=== PATIENT | female | born 1980 | race Caucasian/White ===

== ENCOUNTER 2020-07-29 07:41 | Emergency (ER) | payer BC ==
[2020-07-29 08:50] LABS: Basophils % 0.4 % (0-1.3); Hematocrit 41.5 % (36.0-45.0); MPV 7.4 fL (7.6-11.3)
--- NOTE | 2020-07-29 08:57 | RAD REPORT ---
EXAM DESCRIPTION: RAD - Chest Single View - 07/29/2020 8:52 am CLINICAL HISTORY: ABDOMINAL DISTENTION Chest pain. COMPARISON: No comparisons FINDINGS: Portable technique limits examination quality. The lungs are grossly clear. The heart is normal in size. No displaced fractures. IMPRESSION: No acute intrathoracic process suspected.
[2020-07-29] MEDS ORDERED: NA CHLORIDE 0.9% 1,000 ML ONE (09:09)
[2020-07-29 09:13] LABS: Urine Blood NEGATIVE (NEG); Urine Glucose NEGATIVE (NEG); Urine Protein NEGATIVE (NEG); Urine pH 6.5 (5.0-7.0)
[2020-07-29 09:20] LABS: ALT/SGPT 30 U/L (12-78); AST/SGOT 19 U/L (15-37); Albumin 4.1 g/dL (3.4-5.0); Alkaline Phosphatase 67 U/L (45-117); BUN Blood Urea Nitrogen 10 mg/dL (7-18); Bicarbonate 27 mmol/L (21-32); Bilirubin Direct < 0.1 mg/dL (0-0.2); Bilirubin Total 0.5 mg/dL (0.2-1.0); Glucose Level 107 mg/dL (74-106); Lipase 86 U/L (73-393); Magnesium 2.1 mg/dL (1.8-2.4); NT PRO-BNP 22 pg/mL (<125); Protein, Total 7.9 g/dL (6.4-8.2); Sodium Level 135 mmol/L (136-145); Thyroid Stimulating Hormone 0.193 uIU/mL (0.360-3.740); Troponin (Emerg Dept Use Only) < 0.02 ng/mL (0.0-0.045)
--- NOTE | 2020-07-29 09:32 | RAD REPORT ---
EXAM DESCRIPTION: CTAbdomen Pelvis W Contrast - 07/29/2020 9:03 am CLINICAL HISTORY: Abdominal pain. Abd pain;Flank pain COMPARISON: No comparisons TECHNIQUE: Biphasic CT imaging of the abdomen and pelvis was performed with 100 ml non-ionic IV cont rast. All CT scans are performed using dose optimization technique as appropriate and may include automated exposure control or mA/KV adjustment according to patient size. FINDINGS: The lung bases are clear. The liver, spleen, pancreas, right adrenal gland and kidneys are within normal limits. 2 cm left adre nal mass is present, nonspecific but most likely an adenoma. No bowel obstruction, free air, free fluid or abscess. Sigmoid diverticulosis coli is present without diverticulitis. The appendix is normal. No evidence of significant lymphadenopathy. No suspicious bony findings. IMPRESSION: No acute intra-abdominal or pelvic finding. 2 cm left adrenal mass is present. This is most likely an adenoma. Nonemergent MRI adrenal protocol f [place] could be obtained for confirmation. Mild sigmoid diverticulosis without diverticulitis.
--- NOTE | 2020-07-29 11:21 | ER ---
Nurse's Notes [facility] Name: Loenor Stauffer Age: 40 yrs Sex: Female : 1980 Arrival Date: 07/29/2020 Time: 07:43 Bed 13 Private MD: Keven Pearce Diagnosis: Palpitations;Thyrotoxicosis [hyperthyroidism] Presentation: 07/29 07:44 Chief complaint: Patient states: "I think maybe my thyroid is off, the medicine I used aa5 to take got taken off the shelves and now I've been taking Bacliff thyroid for about a month". Pt also c/o back pain "for a while" and pounding feeling to epigastric area that began approximately 1 week ago. Pt states "I've also been having episodes mostly at night to where my heart pounds hard and I start sweating". Pt also reports burning with urination. Nausea and slight diarrhea. 07:44 Coronavirus screen: Client denies travel out of the [place] in the last 14 days. At this aa5 time, the client does not indicate any symptoms associated with coronavirus-19. Ebola Screen: Patient negative for fever greater than or equal to 101.5 degrees Fahrenheit, and additional compatible Ebola Virus Disease symptoms. Initial Sepsis Screen: Does the patient meet any 2 criteria? HR > 90 bpm. Does the patient have a suspected source of infection? No. Patient's initial sepsis screen is negative. Risk Assessment: Do you want to hurt yourself or someone else? Patient reports no desire to harm self or others. Onset of symptoms was July 2020. 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 - Social history:: Smoking status: Patient denies any tobacco usage or history of. Screenin:16 Abuse screen: Denies threats or abuse. Nutritional screening: No deficits noted. tw2 Tuberculosis screening: No symptoms or risk factors identified. Fall Risk None identified. Assessment: 08:40 General: Appears in no apparent distress. well groomed, Behavior is calm, cooperative, tw2 appropriate for age. Pain: Complains of pain in abdomen. Neuro: Level of Consciousness is awake, alert, obeys commands, Oriented to person, place, time, situation. Cardiovascular: Heart tones S1 S2 Capillary refill < 3 seconds Patient's skin is warm and dry. Respiratory: Airway is patent Respiratory effort is even, unlabored, Respiratory pattern is regular, symmetrical, Breath sounds are clear bilaterally. GI: Abdomen is flat, Bowel sounds present X 4 quads. Abd is soft X 4 quads. GI: Reports lower abdominal pain, upper abdominal pain. : No signs and/or symptoms were reported regarding the genitourinary system. EENT: No signs and/or symptoms were reported regarding the EENT system. Derm: Skin is intact, is healthy with good turgor, Skin is dry. Musculoskeletal: Range of motion: intact in all extremities, Reports "i have this burning inside my body, i think my thyroid is not working right". 09:02 Reassessment: pt remains in CT at this time, unavailable for vs at this time. tw2 09:11 Reassessment: Patient appears in no apparent distress at this time. No changes from tw2 previously documented assessment. Patient and/or family updated on plan of care and expected duration. Pain level reassessed. Patient is alert, oriented x 3, equal unlabored respirations, skin warm/dry/pink. 10:20 Reassessment: Patient appears in no apparent distress at this time. No changes from tw2 previously documented assessment. Patient and/or family updated on plan of care and expected duration. Pain level reassessed. Patient is alert, oriented x 3, equal unlabored respirations, skin warm/dry/pink. 11:30 Reassessment: Patient appears in no apparent distress at this time. No changes from tw2 previously documented assessment. Patient is alert, oriented x 3, equal unlabored respirations, skin warm/dry/pink. Vital Signs: 07:45 BP 124 / 67 LA; Pulse 102; Resp 18 S; Temp 97.1(TE); Pulse Ox 98% on R/A; Weight 86.18 aa5 kg (R); Height 5 ft. 5 in. (165.10 cm) (R); 07:48 BP 119 / 72 RA; aa5 09:11 BP 125 / 70; Pulse 99; Resp 14; Pulse Ox 96% on R/A; tw2 10:14 BP 122 / 61; Pulse 98; Resp 16; Temp 97.2(TE); Pulse Ox 96% on R/A; mh5 11:18 BP 128 / 70; Pulse 89; Resp 16; Temp 97.5(TE); Pulse Ox 100% ; mh5 07:45 Body Mass Index 31.62 (86.18 kg, 165.10 cm) aa5 ED Course: 07:43 Patient arrived in ED. ag5 07:44 Keven Pearce MD is Private Physician. ag5 07:44 Arm band placed on. aa5 07:48 Shayy Butler, GINI is Primary Nurse. tw2 07:56 Patient has correct armband on for positive identification. Placed in gown. Bed in low mh5 position. Call light in reach. Side rails up X 1. Adult w/ patient. Warm blanket given. front desk monitor on. Pulse ox on. NIBP on. 07:57 Triage completed. aa5 08:08 Vince Luong MD is Attending Physician. shena 08:32 EKG done, by ED staff, reviewed by Vince Luong MD. mh5 08:40 Inserted saline lock: 20 gauge in left antecubital area, using aseptic technique. Blood tw2 collected. 08:50 XRAY Chest (1 view) In Process Unspecified. EDMS 08:50 Basic Metabolic Panel Sent. mh5 08:50 CBC with Diff Sent. mh5 08:50 LFT's Sent. mh5 08:50 NT PRO-BNP Sent. mh5 08:50 Troponin (emerg Dept Use Only) Sent. mh5 09:03 CT Abd/Pelvis - IV Contrast Only In Process Unspecified. EDMS 11:19 Keven Pearce MD is Referral Physician. shena 11:30 No provider procedures requiring assistance completed. IV discontinued, intact, tw2 bleeding controlled, No redness/swelling at site. Pressure dressing applied. Administered Medications: 09:10 Drug: NS 0.9% 1000 ml Route: IV; Rate: 1 bolus; Site: left antecubital; tw2 11:31 Follow up: Response: No adverse reaction; IV Status: Completed infusion; IV Intake: tw2 1000ml Intake: 11:31 IV: 1000ml; Total: 1000ml. tw2 Outcome: 11:20 Discharge ordered by . shena 11:30 Discharged to home ambulatory, with significant other. tw2 11:30 Condition: stable 11:30 Discharge instructions given to patient, significant other, Instructed on discharge instructions, follow up and referral plans. medication usage, Demonstrated understanding of instructions, follow-up care, medications, Prescriptions given X 1. 11:33 Patient left the ED. tw2 Signatures: Dispatcher [employer] EDDE Vince Luong MD MD cha Calderon, Audri, RN RN aa5 Shayy Butler RN RN tw2 Mora Haji [facility] Lucia Nathan 5
--- NOTE | 2020-07-29 11:21 | EDPHYS ---
Physician Documentation [facility] Name: Leonor Stauffer Age: 40 yrs Sex: Female : 1980 Arrival Date: 07/29/2020 Time: 07:43 Bed 13 Private MD: Keven Pearce ED Physician Vince Luong HPI: 07/29 11:16 This 40 yrs old Female presents to ER via Ambulatory with complaints of shena Abdominal Pain, Back Pain, Increased Heart Rate. 11:16 The patient presents with pain that is acute, with no known mechanism of injury. The shena symptoms are located in the right mid back and right low back. Onset: The symptoms/episode began/occurred 3 day(s) ago. 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 - Social history:: Smoking status: Patient denies any tobacco usage or history of. ROS: 11:16 Constitutional: Negative for fever, chills, and weight loss, Eyes: Negative for injury, shena pain, redness, and discharge, ENT: Negative for injury, pain, and discharge, Neck: Negative for injury, pain, and swelling, Respiratory: Negative for shortness of breath, cough, wheezing, and pleuritic chest pain, Abdomen/GI: Negative for abdominal pain, nausea, vomiting, diarrhea, and constipation, : Negative for injury, bleeding, discharge, and swelling, MS/Extremity: Negative for injury and deformity, Skin: Negative for injury, rash, and discoloration, Neuro: Negative for headache, weakness, numbness, tingling, and seizure, Psych: Negative for depression, anxiety, suicide ideation, homicidal ideation, and hallucinations, Allergy/Immunology: Negative for hives, rash, and allergies, Endocrine: Negative for neck swelling, polydipsia, polyuria, polyphagia, and marked weight changes, Hematologic/Lymphatic: Negative for swollen nodes, abnormal bleeding, and unusual bruising. 11:16 Cardiovascular: Positive for palpitations. 11:16 Back: Positive for flank pain, on the right. Exam: 11:16 Constitutional: This is a well developed, well nourished patient who is awake, alert, shena and in no acute distress. Head/Face: Normocephalic, atraumatic. Eyes: Pupils equal round and reactive to light, extra-ocular motions intact. Lids and lashes normal. Conjunctiva and sclera are non-icteric and not injected. Cornea within normal limits. Periorbital areas with no swelling, redness, or edema. ENT: Nares patent. No nasal discharge, no septal abnormalities noted. Tympanic membranes are normal and external auditory canals are clear. Oropharynx with no redness, swelling, or masses, exudates, or evidence of obstruction, uvula midline. Mucous membranes moist. Neck: Trachea midline, no thyromegaly or masses palpated, and no cervical lymphadenopathy. Supple, full range of motion without nuchal rigidity, or vertebral point tenderness. No Meningismus. Chest/axilla: Normal chest wall appearance and motion. Nontender with no deformity. No lesions are appreciated. Cardiovascular: Regular rate and rhythm with a normal S1 and S2. No gallops, murmurs, or rubs. Normal PMI, no JVD. No pulse deficits. Respiratory: Lungs have equal breath sounds bilaterally, clear to auscultation and percussion. No rales, rhonchi or wheezes noted. No increased work of breathing, no retractions or nasal flaring. Abdomen/GI: Soft, non-tender, with normal bowel sounds. No distension or tympany. No guarding or rebound. No evidence of tenderness throughout. Back: No spinal tenderness. No costovertebral tenderness. Full range of motion. Skin: Warm, dry with normal turgor. Normal color with no rashes, no lesions, and no evidence of cellulitis. MS/ Extremity: Pulses equal, no cyanosis. Neurovascular intact. Full, normal range of motion. Neuro: Awake and alert, GCS 15, oriented to person, place, time, and situation. Cranial nerves II-XII grossly intact. Motor strength 5/5 in all extremities. Sensory grossly intact. Cerebellar exam normal. Normal gait. Psych: Awake, alert, with orientation to person, place and time. Behavior, mood, and affect are within normal limits. 11:21 ECG was reviewed by the Attending Physician. [facility] Vital Signs: 07:45 BP 124 / 67 LA; Pulse 102; Resp 18 S; Temp 97.1(TE); Pulse Ox 98% on R/A; Weight 86.18 aa5 kg (R); Height 5 ft. 5 in. (165.10 cm) (R); 07:48 BP 119 / 72 RA; aa5 09:11 BP 125 / 70; Pulse 99; Resp 14; Pulse Ox 96% on R/A; tw2 10:14 BP 122 / 61; Pulse 98; Resp 16; Temp 97.2(TE); Pulse Ox 96% on R/A; mh5 11:18 BP 128 / 70; Pulse 89; Resp 16; Temp 97.5(TE); Pulse Ox 100% ; mh5 07:45 Body Mass Index 31.62 (86.18 kg, 165.10 cm) aa5 MDM: 08:09 Patient medically screened. [facility] 11:17 Differential diagnosis: dehydration, chronic back pain, Fatigue Hydronephrosis shena Osteoarthritis Pyelonephritis Renal Infarction ruptured disc, Ureterolithiasis. Data reviewed: vital signs, nurses notes, lab test result(s), EKG, radiologic studies, CT scan, plain films. Data interpreted: residential monitor: rate is 86 beats/min, rhythm is regular, Pulse oximetry: on room air is 96 %. Test interpretation: by ED physician or midlevel provider: ECG, plain radiologic studies. Counseling: I had a detailed discussion with the patient and/or guardian regarding: the historical points, exam findings, and any diagnostic results supporting the discharge/admit diagnosis, lab results, radiology results, the need for outpatient follow up, for definitive care, an herbicide service sales representative, senior management consultant. 07/29 08:24 Order name: Basic Metabolic Panel [facility] 07/29 08:24 Order name: CBC with Diff [facility] 07/29 08:24 Order name: LFT's [facility] 07/29 08:24 Order name: Magnesium [facility] 07/29 08:24 Order name: NT PRO-BNP; Complete Time: 11:15 [facility] 07/29 08:24 Order name: Troponin (emerg Dept Use Only); Complete Time: 11:15 [facility] 07/29 08:24 Order name: Lipase; Complete Time: 11:15 [facility] 07/29 08:24 Order name: TSH; Complete Time: 11:15 [facility] 07/29 08:24 Order name: Urine Culture [facility] 07/29 08:24 Order name: Basic Metabolic Panel; Complete Time: 11:15 EDMS 07/29 08:24 Order name: CBC with Automated Diff; Complete Time: 11:15 EDAL 07/29 08:24 Order name: Liver (Hepatic) Function; Complete Time: 11:15 EDMS 07/29 08:24 Order name: Magnesium; Complete Time: 11:15 EDAL 07/29 08:48 Order name: Urine Dipstick--Ancillary (enter results); Complete Time: 11:15 em1 07/29 08:24 Order name: XRAY Chest (1 view); Complete Time: 11:15 [facility] 07/29 08:24 Order name: EKG; Complete Time: 08:25 [facility] 07/29 08:24 Order name: Cardiac monitoring; Complete Time: 08:25 [facility] 07/29 08:24 Order name: EKG - Nurse/Tech; Complete Time: 08:50 [facility] 07/29 08:24 Order name: IV Saline Lock; Complete Time: 08:50 [facility] 07/29 08:24 Order name: Labs collected and sent; Complete Time: 08:50 [facility] 07/29 08:24 Order name: O2 Per Protocol; Complete Time: 08:53 [facility] 07/29 08:24 Order name: O2 Sat Monitoring; Complete Time: 08:53 [facility] 07/29 08:24 Order name: Urine Dipstick-Ancillary (obtain specimen); Complete Time: 08:47 [facility] 07/29 08:24 Order name: CT Abd/Pelvis - IV Contrast Only; Complete Time: 11:15 [facility] 07/29 08:48 Order name: Urine --Ancillary (enter results); Complete Time: 11:15 em1 EC:21 Rate is 86 beats/min. Rhythm is regular. QRS [place] is Normal. HI interval is normal. QRS shena interval is normal. QT interval is normal. No Q waves. T waves are Normal. No ST changes noted. Clinical impression: NSR w/ Non-specific ST/T Changes and No evidence of ischemia. Interpreted by me. Reviewed by me. Administered Medications: 09:10 Drug: NS 0.9% 1000 ml Route: IV; Rate: 1 bolus; Site: left antecubital; tw2 11:31 Follow up: Response: No adverse reaction; IV Status: Completed infusion; IV Intake: tw2 1000ml Disposition: 07/29/20 11:20 Discharged to Home. Impression: Palpitations, Thyrotoxicosis [hyperthyroidism]. - Condition is Stable. - Discharge Instructions: Hyperthyroidism, Palpitations, Palpitations, [id number]. - Prescriptions for Toprol XL 25 mg Oral Tablet - take 1 tablet by ORAL route once daily; 20 tablet. - Medication Reconciliation Form, Thank You Letter, Antibiotic Education, Prescription Opioid Use form. - Follow up: Keven Pearce MD; When: 1 - 2 days; Reason: Recheck today's complaints, Continuance of care, Re-evaluation by your physician. - Problem is new. - Symptoms have improved. Signatures: Dispatcher [employer] EDAL Vince Luong MD MD cha Calderon, Audri, RN RN aa5 Shayy Butler RN RN tw2 Corrections: (The following items were deleted from the chart) 11:33 11:20 07/29/2020 11:20 Discharged to Home. Impression: Palpitations; Thyrotoxicosis tw2 [hyperthyroidism]. Condition is Stable. Forms are Medication Reconciliation Form, Thank You Letter, Antibiotic Education, Prescription Opioid Use. Follow up: Keven Pearce; When: 1 - 2 days; Reason: Recheck today's complaints, Continuance of care, Re-evaluation by your physician. Problem is new. Symptoms have improved. shena
[2020-07-29 12:43] VITALS: BP 128/70; TEMP 97.5; O2SAT 100
--- NOTE | 2020-07-30 07:26 | EKG ---
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
== END 2020-07-29 11:33 | disposition home or self-care (01) ==
LOC: ER 07:41
DX: E05.90 Thyrotoxicosis, unspecified without thyrotoxic crisis or storm (principal); M54.5 Low back pain; Z88.1 Allergy status to other antibiotic agents
CPT/HCPCS: 93005; 87088; 85025; 87086; 80048; 36415; 83735; 81025; 82565; 80076; 84443; 81003; 84484; 83690; 83880; 74177; 71045; Q9967; J7030; 96360; 96361; 99285

== ENCOUNTER 2021-02-18 10:22 | Emergency (ER) | payer BC ==
--- OUTSIDE RECORDS SUMMARY | 2021-02-18 10:24 | XMS REPORT | Continuity of Care Document ---
:1980 Author Organization [facility] t Address [address] [place] [address] Care Team Providers Name Role Phone Radiology Attending Clinician Unavailable Problems This patient has no known problems. Allergies, Adverse Reactions, Alerts This patient has no known allergies or adverse reactions. Medications This patient has no known medications. Procedures This patient has no known procedures. Encounters Start End Encounter Admission Attending Care Care Encounter Source Date/Time Date/Time Type Type Clinicians Facility Department ID 2020-10-28 2020-10-28 [facility] Radiology [id number] 13:30:00 23:59:00 Encounter [place] [id number] [place] [id number] [place] [id number] 2020-10-28 2020-10-28 [facility] Radiology [facility] [id number] 13:00:00 13:29:00 Encounter [place] [id number] [place] [id number] [place] [phone] [id number] Results This patient has no known results.
--- NOTE | 2021-02-18 13:00 | EDPHYS ---
Physician Documentation [facility] Name: Leonor Stauffer Age: 40 yrs Sex: Female : 1980 Arrival Date: 02/18/2021 Time: 10:24 Bed Treatment Private MD: ED Physician Theo Alvarez HPI: 02/18 14:10 This 40 yrs old Female presents to ER via Ambulatory with complaints of kb Fever, Weakness. 14:10 The patient or guardian reports flu symptoms, arthralgias, low-grade fever, myalgias. kb Onset: The symptoms/episode began/occurred 3 week(s) ago. Severity of symptoms: At their worst the symptoms were mild, moderate, in the emergency department the symptoms are unchanged. Modifying factors: The symptoms are alleviated by nothing, the symptoms are aggravated by nothing. Associated signs and symptoms: Pertinent positives: fever, sore throat, Pertinent negatives: chest pain, diarrhea, ear ache, nausea, rhinorrhea, vomiting. The patient has not experienced similar symptoms in the past. The patient has not recently seen a physician. Pt states she had a sore throat and a rash to her face about 3 weeks ago. States she took ivermectin and the rash went away. The sore throat went away on its own. Has been having joint pain, low grade fever, fatigue and malaise for the past 3 weeks. States she believes she has rheumatic fever and wants a "penicillin la shot." Pt recently had multiple labs including stool tests done by homeopathic doctor who will not prescribe antibiotics. States her stool had a lot of strep in it. Was prescribed augmentin by SENIOR CASE MANAGER last week and has been taking that, has three more days of prescription left. . Historical: - Allergies: 11:00 Gentamicin; ph - PMHx: 11:00 prediabetes; Thyroid problem; ph - PSHx: 11:00 None; ph ROS: 13:56 Respiratory: Negative for shortness of breath, cough, wheezing, and pleuritic chest kb pain. 13:56 Constitutional: Positive for body aches, fatigue, fever, malaise. 13:56 All other systems are negative. Exam: 14:09 Constitutional: This is a well developed, well nourished patient who is awake, alert, kb and in no acute distress. ENT: Moist Mucous membranes Cardiovascular: Regular rate and rhythm with a normal S1 and S2. No gallops, murmurs, or rubs. No pulse deficits. Respiratory: Respirations even and unlabored. No increased work of breathing, no retractions or nasal flaring. Abdomen/GI: Soft, non-tender. No distention Skin: Warm, dry with normal turgor. Normal color. MS/ Extremity: Pulses equal, no cyanosis. Neurovascular intact. Full, normal range of motion. Neuro: Awake and alert, GCS 15, oriented to person, place, time, and situation. Moves all extremities. Normal gait. Psych: Awake, alert, with orientation to person, place and time. Behavior, mood, and affect are within normal limits. 14:09 ENT: Posterior pharynx: is normal. Vital Signs: 10:58 BP 117 / 63; Pulse 94; Resp 18; Temp 97.2; Pulse Ox 99% on R/A; Weight 86.18 kg; Height ph 5 ft. 5 in. (165.10 cm); 10:58 Body Mass Index 31.62 (86.18 kg, 165.10 cm) ph MDM: 11:50 Patient medically screened. kb 13:55 Data reviewed: vital signs, nurses notes. Data interpreted: Pulse oximetry: on room air kb is 99 %. Interpretation: normal. Counseling: I had a detailed discussion with the patient and/or guardian regarding: the historical points, exam findings, and any diagnostic results supporting the discharge/admit diagnosis, lab results, the need for outpatient follow up, a family practitioner, to return to the emergency department if symptoms worsen or persist or if there are any questions or concerns that arise at home. 02/18 11:40 Order name: Strep kb 02/18 11:41 Order name: Group A Streptococcus Rapid Sc; Complete Time: 12:40 EDMS 02/18 12:40 Order name: Throat Culture EDMS Administered Medications: No medications were administered Disposition: 18:30 Co-signature as Attending Physician, Theo Alvarez MD I agree with the assessment and tw4 plan of care. Disposition: 02/18/21 12:59 Discharged to Home. Impression: Pain in unspecified joint - generalized joint pain, Malaise and fatigue. - Condition is Stable. - Discharge Instructions: Fatigue, Joint Pain, [id number]. - Medication Reconciliation Form, Thank You Letter, Antibiotic Education, Prescription Opioid Use form. - Follow up: Private Physician; When: 2 - 3 days; Reason: Recheck today's complaints, Continuance of care, Re-evaluation by your physician. Follow up: Emergency Department; When: As needed; Reason: Worsening of condition. Signatures: Dispatcher [employer] EDMT FernandoMagdyBrooke, SLICING MACHINE OPERATOR/TENDER-C SLICING MACHINE OPERATOR/TENDER-Ckb Sherrell Lambert, RN RN aa5 Justine Gomes RN RN Theo Alvarez MD MD tw4 Corrections: (The following items were deleted from the chart) 13:26 12:59 02/18/2021 12:59 Discharged to Home. Impression: Pain in unspecified joint - aa5 generalized joint pain; Malaise and fatigue. Condition is Stable. Forms are Medication Reconciliation Form, Thank You Letter, Antibiotic Education, Prescription Opioid Use. Follow up: Private Physician; When: 2 - 3 days; Reason: Recheck today's complaints, Continuance of care, Re-evaluation by your physician. Follow up: Emergency Department; When: As needed; Reason: Worsening of condition. kb
--- NOTE | 2021-02-18 13:00 | ER ---
Nurse's Notes [facility] Name: Leonor Stauffer Age: 40 yrs Sex: Female : 1980 Arrival Date: 02/18/2021 Time: 10:24 Bed Treatment Private MD: Diagnosis: Pain in unspecified joint-generalized joint pain;Malaise and fatigue Presentation: 02/18 10:58 Chief complaint: Patient states: " I think I may have rheumatic fever." Reports body ph aches, joint pain, rash to abdomen and fever x approx 1 month. Coronavirus screen: Client denies travel out of the [place] in the last 14 days. Ebola Screen: No symptoms or risks identified at this time. No acute neurological deficit is noted. Pre-hospital glucose is not applicable to this patient. Initial Sepsis Screen: Does the patient meet any 2 criteria? No. Patient's initial sepsis screen is negative. Does the patient have a suspected source of infection? No. Patient's initial sepsis screen is negative. Risk Assessment: Do you want to hurt yourself or someone else? Patient reports no desire to harm self or others. Onset of symptoms was February 18, 2021. 10:58 Method Of Arrival: Ambulatory ph 10:58 Acuity: SUNDAY 4 ph Historical: - Allergies: 11:00 Gentamicin; ph - PMHx: 11:00 prediabetes; Thyroid problem; ph - PSHx: 11:00 None; ph Vital Signs: 10:58 BP 117 / 63; Pulse 94; Resp 18; Temp 97.2; Pulse Ox 99% on R/A; Weight 86.18 kg; Height ph 5 ft. 5 in. (165.10 cm); 10:58 Body Mass Index 31.62 (86.18 kg, 165.10 cm) ph ED Course: 10:24 Patient arrived in ED. ds1 11:00 Triage completed. ph 11:00 Arm band placed on Patient placed in waiting room, Patient notified of wait time. ph 11:40 Brooke King FNP-C is PHCP. kb 11:40 Theo Alvarez MD is Attending Physician. kb Administered Medications: No medications were administered Outcome: 12:59 Discharge ordered by . memo 13:26 Patient left the ED. aa5 Signatures: Brooke King FNP-C FNP-Ckb Aida Gerardo ds1 Sherrell Lambert, RN RN aa5 Justine Gomes, RN RN ph
[2021-02-18 13:30] VITALS: BP 117/63; TEMP 97.2; O2SAT 99
== END 2021-02-18 13:26 | disposition home or self-care (01) ==
LOC: ER 10:22
DX: R53.83 Other fatigue (principal); R53.81 Other malaise; M25.50 Pain in unspecified joint; Z88.1 Allergy status to other antibiotic agents
CPT/HCPCS: 87070; 87081; 99281